=== PATIENT | female | born 1980 | race Caucasian/White ===

== ENCOUNTER 2017-06-27 07:00 | Day surgery (SDC) | payer OTHER ==
[~2017-06-27 07:00] MED LIST: ACETAMINOPHEN 1,000 MG/100 ML BTL IV ONE; CEFAZOLIN 2 Gram 2 GM/50 ML BAG IVPB ONE; FAMOTIDINE 20MG TABLET PO ONE; MECLIZINE 25 MG TABLET PO ONE; METOCLOPRAMIDE 10 MG TABLET PO ONE
[2017-06-27] MEDS ORDERED: HYDROMORPHONE HCL 2 MG/ML VIAL IV ONE ×2 (07:01)
[2017-06-27] MEDS ORDERED: PROPOFOL 10 MG/ML VIAL IV ONE (07:01)
[2017-06-27] MEDS ORDERED: BUPIVACAINE 0.5% W/EPI MPF 30 ML VIAL IVP ONE (07:01)
[2017-06-27] MEDS ORDERED: MIDAZOLAM HCL 2MG/2ML VIAL IV ONE (07:01)
[2017-06-27] MEDS ORDERED: LIDOCAINE 1% W/EPI 1:200,000 MPF 30ML SQ ONE (07:01)
[2017-06-27] MEDS ORDERED: LIDOCAINE 2% MDV (20MG/ML) 20ML VIAL IV ONE (07:01)
[2017-06-27] MEDS ORDERED: FENTANYL PF 100MCG/2ML VIAL IV ONE ×2 (07:01)
[2017-06-27] MEDS ORDERED: FLUMAZENIL 1MG/10ML VIAL IV ONE (07:01)
[2017-06-27] MEDS ORDERED: *PACU ONLY* KETAMINE HCL 10 MG/ML (20ML) VIAL IV ONE (07:01)
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
[2017-06-27] MEDS ORDERED: METOCLOPRAMIDE HCL 10 MG/2 ML VIAL IVP PRN (10:49)
[2017-06-27] MEDS ORDERED: TEMAZEPAM 15 MG CAPSULE PO PRN ×2 (10:49)
[2017-06-27] MEDS ORDERED: HYDROMORPHONE HCL 2 MG/ML VIAL IM PRN (10:49)
[2017-06-27] MEDS ORDERED: HYDROCODONE/APAP 7.5/325MG TABLET PO PRN ×2 (10:49)
[2017-06-27] MEDS ORDERED: SENNOSIDES/DOCUSATE SODIUM UD CAPSULE PO PRN ×2 (10:49)
[2017-06-27] MEDS ORDERED: AL HYDROX/MAG HYDROX 30ML UD PO PRN (10:49)
[2017-06-27] MEDS ORDERED: ACETAMINOPHEN 325 MG TAB PO PRN ×2 (10:49)
[2017-06-27] MEDS ORDERED: DIPHENHYDRAMINE HCL IV 50 MG/ML VIAL IVP PRN ×2 (10:49)
[2017-06-27] MEDS ORDERED: HYDROMORPHONE HCL 1 MG/ML SYRINGE IM PRN (10:49)
[2017-06-27] MEDS ORDERED: METOCLOPRAMIDE 10 MG TABLET PO PRN (10:49)
[2017-06-27] MEDS ORDERED: DIPHENHYDRAMINE HCL 25 MG CAPSULE PO PRN ×2 (10:49)
[2017-06-27] MEDS ORDERED: OXYCODONE/APAP 10MG-325MG TABLET PO PRN (10:49)
[2017-06-27] MEDS ORDERED: NICOTINE 21 MG/24 HOUR PATCH TD SCH (11:30)
[2017-06-27] MEDS: OXYCODONE SR 10 MG TAB.ER.12H PO SCH ×2 (11:36→22:14)
[2017-06-27] MEDS: OXYCODONE SR 20 MG TAB.ER.12H PO SCH ×2 (11:36→22:12)
[2017-06-27] MEDS: PREGABALIN (LYRICA) 100MG CAPSULE PO SCH ×2 (11:37→22:12)
[2017-06-27] MEDS: PREGABALIN 25 MG CAPSULE PO SCH ×2 (11:37→22:12)
[2017-06-27] MEDS: OXYCODONE/APAP 10MG-325MG TABLET PO PRN ×2 (15:15→19:35)
[2017-06-27] MEDS: CEFAZOLIN 2 Gram 2 GM/50 ML BAG IVPB SCH (15:15)
[2017-06-27] MEDS ORDERED: 0.9 % SODIUM CHLORIDE 10ML SYR IVP SCH (22:00)
[2017-06-28] MEDS: CEFAZOLIN 2 Gram 2 GM/50 ML BAG IVPB SCH ×2 (00:01→08:48)
[2017-06-28] MEDS: OXYCODONE/APAP 10MG-325MG TABLET PO PRN ×2 (02:53→06:57)
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
--- NOTE | 2017-06-28 17:35 | RADIOLOGY REPORT ---
EXAM: SPINE, 1 VIEW HISTORY: STIMULATOR PLACEMENT. TECHNIQUE: Single view of the lumbar spine was performed. FINDINGS: The stimulator lead tips are at the C2 level. IMPRESSION: STIMULATOR TIPS ARE AT THE C2 LEVEL. JOB NUMBER: [id number] [facility]
== END 2017-06-28 10:00 | disposition home or self-care (01) ==
LOC: SUR 07:00 → MEDSURG 11:08 → SUR 06-28 10:00
PROVIDERS: ATTEND Pain Medicine Interventional Pain Medicine
DX: M54.13 Radiculopathy, cervicothoracic region (principal); Z72.0 Tobacco use
CPT/HCPCS: 63685; 63650 ×2; 01936; 95972; 72020; J3010; J1170; J0690 ×2; C1820; C1883